=== PATIENT | female | born 1980 | race Hispanic/Latino ===

== ENCOUNTER 2018-02-05 08:59 | Emergency (ER) | payer BC ==
[2018-02-05 08:59] VITALS: BMI 36.8
[2018-02-05 09:24] VITALS: RESP 18; O2SAT 99
--- NOTE | 2018-02-05 09:38 | ED PDOC ---
Arrival/HPI - General Chief Complaint: Abnormal Skin Integrity Time Seen by Provider: 02/05/18 09:06 Historian: Patient - History of Present Illness Narrative History of Present Illness (Text): 02/05/18 09:10 37 F with PMHx of pancreatic surgery, presents with cc of burning, itchy rash all over body, started spreading yesterday. Patient reports itchiness, mostly on hands and in ear, some in throat. Pt notes ear feels puffy. Patient reports she sometimes gets hives from sun exposure, but notes that for previous times it has not spread everywhere on body to back, stomach, arms, from thigh down, and abdomen. Patient notes taking Benadryl and using hydrocortisone, with no significant relief. Patient reports she did not eat anything different but notes recently starting on Lyrica about 2 weeks ago. Patient denies any other complaints. PMD: Carolin Driver Time/Duration: Other (pt notes rash started spreading yesterday) Symptom Onset: Gradual Symptom Course: Unchanged Quality: Burning, Other (Itchy) Activities at Onset: Light Context: Home Past Medical History - Provider Review Nursing Documentation Reviewed: Yes - Reproductive Menopause: No - Cardiac Hx Pacemaker: No - Pulmonary Hx Respiratory Disorders: Yes Hx Asthma: Yes ( A CHILD) - Neurological Hx Paralysis: No - HEENT Hx HEENT Disorder: Yes (TONSILLECTOMY) - Hematological/Oncological Hx Blood Transfusions: No Hx Blood Transfusion Reaction: No - Integumentary Hx Dermatological Disorder: Yes (FRECKLES) - Musculoskeletal/Rheumatological Hx Musculoskeletal Disorders: Yes (ANKLES) - Gastrointestinal Other/Comment: HERNIA REPAIR- OCTOBER 2012, [id number] POST LYSIS OF SDHESIONS,REPAIR OF INCISIONLA ABDOMINAL HERNIA,RESECTION OF ABDOMINAL WALL SEROMA CYST AND SPLENIC COLECTOMY. - Genitourinary/Gynecological Hx Genitourinary Disorders: (1 C SECTION , BREAST CYST REMOVED,) - Psychiatric Hx Emotional Abuse: No Hx Physical Abuse: No Hx Substance Use: No - Surgical History Other/Comment: C SECTION X 1, 3 ANKLE SURGERY,10 ERCP WITH STENTS.02-25-14 INCISIONAL HERNIA-LYSIS OF ADHESIONS,EXCISION OF SEROMA SPLENIC COLECTOMY, PANCRATIC SURGERY, - Anesthesia Hx Anesthesia Reactions: Yes (NAUSEA) Hx Malignant Hyperthermia: No - Suicidal Assessment Feels Threatened In Home Enviroment: No Family/Social History - Physician Review Nursing Documentation Reviewed: Yes Family/Social History: No Known Family HX Smoking Status: Current Some Days Smoker Hx Alcohol Use: No Hx Substance Use: No Allergies/Home Meds Allergies/Adverse Reactions: Allergies IV TAPE Allergy (Uncoded 08/11/16 11:47) RASH/SKIN PEELING Home Medications: Home Meds Medication Instructions Recorded Confirmed Cetirizine HCl [Zyrtec Allergy] 10 mg PO HS 02/05/18 02/05/18 Pregabalin [Lyrica] 50 mg PO BID 02/05/18 02/05/18 Review of Systems - Physician Review All systems were reviewed & negative as marked: Yes (All other systems negative except that noted in the HPI.) Physical Exam - Physical Exam Narrative Physical Exam (Text): 02/05/18 09:10 Gen: VS reviewed, alert, well developed, well nourished, nontoxic, mild distress. ENT: normal pharynx. Eye: EOMI, PERRL. Neck: no JVD, supple, no adenopathy. CV: regular rate, regular rhythm, no rubs, no murmur, no gallops, S1, S2, pulses equal and strong. Pulm: no distress, clear to auscultation, no wheeze, no rhonchi, breath sounds equal, no rales. Abd: soft, nontender, no guarding, no rebound, no rigidity, normal bowel sounds. Ext: no edema. Psych: responds appropriately to questions, normal affect. Neuro: oriented x 3, CN2-12 intact grossly, motor intact, sensation intact. Physical exam is normal except: Diffuse homogenous red rash. Raised blanches on the face, chest, back, arms, legs. Spares the soles. Skin lesions on the palms. Vital Signs Reviewed: Yes Vital Signs Temp Pulse Resp BP Pulse Ox 02/05/18 09:51 98 F 92 H 18 125/81 99 02/05/18 09:25 98.0 F 102 H 18 129/81 99 02/05/18 09:14 98 F 102 H 18 129/81 99 Temperature: Afebrile Blood Pressure: Normal Pulse: Tachycardic Respiratory Rate: Normal Appearance: Positive for: Well-Appearing, Non-Toxic, Comfortable Pain Distress: Mild Mental Status: Positive for: Alert and Oriented X 3 Medical Decision Making ED Course and Treatment: 02/05/18 09:10 Plan: -- predniSONE -- POC Urine Test -- Reassess and disposition Prior Visits: Notes and results from previous visits were reviewed. Progress Notes: 02/05/18 15:10 patient was seen for diffuse rash, consistent with acute urticaria. no other systemic involvement at time of presentation. patient tx with systemic corticosteroids and antihistamines. patient will follow up with an legal contracts specialist, especially as the patient reports similiar symptoms experienced in the past. - Medication Orders Current Medication Orders: Discontinued Medications Prednisone (Prednisone Tab) 60 mg PO STAT ONE Stop: 02/05/18 09:27 Last Admin: 02/05/18 09:38 Dose: 60 mg - Scribe Statement The provider has reviewed the documentation as recorded by the Demarcoibolga lidia García All medical record entries made by the Demarcoibolga lidia were at my direction and personally dictated by me. I have reviewed the chart and agree that the record accurately reflects my personal performance of the history, physical exam, medical decision making, and the department course for this patient. I have also personally directed, reviewed, and agree with the discharge instructions and disposition. Disposition/Present on Arrival - Present on Arrival Any Indicators Present on Arrival: No History of DVT/PE: No History of Uncontrolled Diabetes: No Urinary Catheter: No History of Decub. Ulcer: No History Surgical Site Infection Following: None - Disposition Have Diagnosis and Disposition been Completed?: Yes Diagnosis: Urticaria Disposition: HOME/ ROUTINE Disposition Time: 15:12 Condition: STABLE Discharge Instructions (ExitCare): Hives Print Language: YORUBA Additional Instructions: Follow up with an legal contracts specialist. Return for any new or worsening symptoms. SWATHI CUNNINGHAM, thank you for letting us take care of you today. Your provider was Dr. Wilbert Cruz and you were treated for urticaria. The emergency medical care you received today was directed at your acute symptoms. If you were prescribed any medication, please fill it and take as directed. It may take several days for your symptoms to resolve. Return to the Emergency Department if your symptoms worsen, do not improve, or if you have any other problems. Please contact your doctor or call one of the physicians/clinics you have been referred to that are listed on the Patient Visit Information form that is included in your discharge packet. Bring any paperwork you were given at discharge with you along with any medications you are taking to your follow up visit. Our treatment cannot replace ongoing medical care by a primary care provider outside of the emergency department. Thank you for allowing the [facility] team to be part of your care today. If you had an X-Ray or CT scan: A Radiologist will review the ED reading if any change in treatment is needed we will contact you. If you had a blood, urine, or wound culture: It will take several days for the results, if any change in treatment is needed we will contact you. If you had an STI test: It will take 48 hours for the results. Please call after 1 week if you have not heard back. Prescriptions: hydrOXYzine HCl [Atarax] 25 mg PO Q6H #30 tab Prednisone [Deltasone] 20 mg PO DAILY #18 tablet Forms: [facility] (Portuguese), WORK NOTE
[2018-02-05 09:56] VITALS: BP 125/81; PULSE 92; TEMP 98
== END 2018-02-05 09:57 | disposition home or self-care (01) ==
LOC: ED 08:59
DX: L50.9 Urticaria, unspecified (principal)